=== PATIENT | female | born 1990 | race Caucasian/White ===

== ENCOUNTER 2018-12-29 19:28 | Emergency (ER) | payer OTHER ==
[2018-12-29 20:10] VITALS: BP 105/62; PULSE 116; TEMP 100.1; BMI 26.6
== END 2018-12-29 20:05 | disposition left against medical advice (07) ==
LOC: JER 19:28
DX: Z53.21 Procedure and treatment not carried out due to patient leaving prior to being seen by health care provider (principal)
CPT/HCPCS: 99281-25